=== PATIENT | female | born 1990 | race Caucasian/White ===

== ENCOUNTER 2019-11-25 04:27 | Emergency (ER) | payer MEDICAID, OTHER ==
[~2019-11-25] VITALS: Ht 154.9 cm; Wt 72.0 kg
--- NOTE | 2019-11-25 04:33 | PHYS DOC ---
Past History Past Medical History: Anxiety, Bronchitis, UTI, Other Past Medical History Gravid 11, Para 2 Past Surgical History: No Surgical History Smoking: Cigarettes Alcohol Use: Occasionally Drug Use: Methamphetamine General Adult HPI: HPI: "..I think I may be starting to get ready to have a baby,,, loss my plug approx imately 2 days ago... I was about 36 weeks 4 days on about 3 November... My contractions started about 130 this morning they have been about 5 minutes apart... I am supposed to deliver at but I was worried that I might not be able to make it all the way down there with my baby's daddy driving me... Patient is a 29 year old female who presents with above hx and complaints abdomen contractions reportedly approximately 5 minutes apart. Patient has a gravid 11 para 2. There has been no rupture membranes as yet. No vaginal bleeding. Does appear to be dilated 5 to 8 cm. Effacement to approximately 1 cm. No rupture of membranes as yet. Is having contraction approximately every 5 to 6 min. US show head presentation with FHR 140 to 150's, active move ments. . Sterile glove exam- No active bleeding. Pt. Denies any recent travel out side of area. Pt. denies any ill contacts. Pt. states she discovered she was approximately 2 weeks ago and was seen at . Pt. insistent on transfer to to have delivery or OB evaluation. Pt. denies Covid risks. Review of Systems: Review of Systems: Constitutional: Denies fever or chills Eyes: Denies change in visual acuity HENT: Denies nasal congestion or sore throat Respiratory: Denies cough or shortness of breath Cardiovascular: Denies chest pain or edema GI: Complaintgs of abdominal pain, nausea. Denies vomiting, bloody stools or diarrhea : Denies dysuria Musculoskeletal: Denies back pain or joint pain Integument: Denies rash Neurologic: Denies headache, focal weakness or sensory changes Endocrine: Denies polyuria or polydipsia Lymphatic: Denies swollen glands Psychiatric: Denies depression or anxiety Heart Score: Risk Factors: Risk Factors: DM, Current or recent (<one month) smoker, HTN, HLP, family history of CAD, obesity. Risk Scores: Score 0 - 3: 2.5% MACE over next 6 weeks - Discharge Home Score 4 - 6: 20.3% MACE over next 6 weeks - Admit for Clinical Observation Score 7 - 10: 72.7% MACE over next 6 weeks - Early Invasive Strategies Family History: Family History: Noncontributory Current Medications: Current Meds: See nursing for home meds Allergies: Allergies: Allergies Coded Allergies Type Severity Reaction Last Updated Verified No Known Drug Allergies 02/22/15 No Physical Exam: PE: Constitutional: Well developed, well nourished, no acute distress, non-toxic appearance. [] HENT: Normocephalic, atraumatic, bilateral external ears normal, oropharynx moist, no oral exudates, nose normal. [] Eyes: PERRLA, EOMI, conjunctiva normal, no discharge. [] Neck: Normal range of motion, no tenderness, supple, no stridor. [] Cardiovascular:Heart rate regular rhythm, no murmur [] Lungs & Thorax: Bilateral breath sounds clear to auscultation [] Abdomen: Bowel sounds normal, soft, no tenderness, no masses, no pulsatile masses. [] Skin: Warm, dry, no erythema, no rash. [] Back: No tenderness, no CVA tenderness. [] Extremities: No tenderness, no cyanosis, no clubbing, ROM intact, no edema. [] Neurologic: Alert and oriented X 3, normal motor function, normal sensory function, no focal deficits noted. [] Psychologic: Affect normal, judgement normal, mood normal. [] EKG: EKG: [] Radiology/Procedures: Radiology/Procedures: Bedside ultrasound shows cephalic positioning , active movements and heart rate between 140 and 150s [] Course & Med Decision Making: Course & Med Decision Making Pertinent Labs and Imaging studies reviewed. (See chart for details) Discussed presentation, testing and tx. plan with Dr. Yepez- OB at . Will accept pt. to the Ob unit at . O445 approx.. Pt. insistent on travel to for delivery. Pt. is aware risks to transfer to and possible progression to delivery in route to . Impression: 1. Abdomen Pain- 38 weeks 2. Hx G 11, P2 3. Hx. No Care 4. Leukocytosis 13.2 5. Alk. Phos 182 6. BHG 23,670 7. Blood Type A + 8. Hx. Tobacco and Meth. Use [] Dragon Disclaimer: Miguel Disclaimer: This electronic medical record was generated, in whole or in part, using a voice recognition dictation system. Departure Departure: Disposition: HOME/RESIDENCE PRIOR TO ADM Condition: STABLE Referrals: PCP,SHO (PCP) ADEBAYO CONNOR MD Nov 25, 2019 04:33
[2019-11-25 04:46] VITALS: BP 124/69
[2019-11-25 05:37] LABS: CALCIUM 8.5 mg/dL (8.5-10.1); CREATININE 0.6 mg/dL (0.6-1.0); GFR 118.2; POTASSIUM 3.5 mmol/L (3.5-5.1)
[2019-11-25 05:38] LABS: BASO % 0 % (0-3); EOS # 0.3 x10^3/uL (0.0-0.7); EOS % 2 % (0-3); HEMATOCRIT 37.6 % (36.0-47.0); HEMOGLOBIN 12.2 g/dL (12.0-15.5); LYMPH # 3.7 x10^3/uL (1.0-4.8); LYMPH % 28 % (24-48); MEAN CORPUSCULAR HEMOGLOBIN 30 pg (25-35); MEAN CORPUSCULAR HGB CONC 32 g/dL (31-37); MEAN CORPUSCULAR VOLUME 91 fL (79-100); MONO # 0.8 x10^3/uL (0.0-1.1); MONO % 6 % (0-9); NEUT # 8.4 x10^3uL (1.8-7.7); NEUT % 64 % (31-73); PLATELET COUNT 470 x10^3/uL (140-400); RED BLOOD COUNT 4.13 x10^6/uL (3.50-5.40); RED CELL DISTRIBUTION WIDTH 13.8 % (11.5-14.5); WHITE BLOOD COUNT 13.2 x10^3/uL (4.0-11.0)
[2019-11-25 05:44] LABS: ALBUMIN 2.6 g/dL (3.4-5.0); DIRECT BILIRUBIN 0.1 mg/dL (0.0-0.2); TOTAL BILIRUBIN 0.1 mg/dL (0.2-1.0); TOTAL PROTEIN 6.9 g/dL (6.4-8.2)
[2019-11-25] MEDS ORDERED: IV RINGERS SOLUTION,LACTATED 1,000 ML IV SCH (06:00)
[2019-11-25] MEDS ORDERED: MAGNESIUM SULFATE 2GM 50 ML IV ONE (06:00)
[2019-11-26 16:07] LABS: CHLAMYDIA PROBE Negative (Negative)
== END 2019-11-25 05:28 | disposition short-term general hospital (02) ==
LOC: ER 04:27
DX: O26.893 Other specified pregnancy related conditions, third trimester (principal); O99.113 Other diseases of the blood and blood-forming organs and certain disorders involving the immune mechanism complicating pregnancy, third trimester; D72.829 Elevated white blood cell count, unspecified; R74.8 Abnormal levels of other serum enzymes; O99.333 Smoking (tobacco) complicating pregnancy, third trimester; O99.323 Drug use complicating pregnancy, third trimester; F15.10 Other stimulant abuse, uncomplicated; Z3A.38 38 weeks gestation of pregnancy
CPT/HCPCS: 36415; 80048; 80076; 83690; 84702; 85025; 85610; 85730; 86900; 86901; 87070; 87491; 87591; 99285-25

== ENCOUNTER 2020-10-20 15:20 | Emergency (ER) | payer OTHER ==
[~2020-10-20] VITALS: Ht 154.9 cm; Wt 70.2 kg
--- NOTE | 2020-10-20 15:57 | PHYS DOC ---
Past History Past Medical History: Anxiety, Bronchitis, UTI, Other (ERIC VIRGEN APRN) Past Surgical History: No Surgical History (ERIC VIRGEN APRN) Smoking: Cigarettes Alcohol Use: None Drug Use: Methamphetamine (ERIC VIRGEN APRN) Adult General Chief Complaint Chief Complaint: GI PROBLEM HPI HPI Patient is a 30-year-old female who presents to the emergency department complaining of epigastric burning with nausea and vomiting for the past 3 days. Patient states she is approximately 31 weeks . Reports an EDC of December 182020, patient is a G6, P3 SAB 2, patient is 31 weeks 4 days per EDC on last menstrual cycle of March 14, 2020. Patient reports she does not have any OB care and [place] as she moved from [facility] last week and states she cannot find an WORKERS COMPENSATION CLAIMS ASSISTANT to care for her because she is so far along. Patient reports she plans on coming to [place] emergency department and being transferred to either or [facility] to have her baby. Patient denies chest pain, denies shortness of breath, denies neck pain, sore throat, headaches, diarrhea, abdominal pain, or constipation. Patient reports she is currently nauseated and has thrown up at least 5 times today. Patient states she has had indigestion like this with her previous pregnancies, patient states she needs something to help for today. Patient denies any increased thirst or increased urination. Patient denies any urinary burning or other urinary tract infection signs and symptoms. Patient denies vaginal discharge, denies STI concerns. Patient denies taking any prescription medications at home other than a vitamin, reports ibuprofen as an allergy. Patient denies any recent fever or chills, loss of taste or loss of smell. Patient states she has not had any recent exposure to the COVID-19 virus. Patient states she has not had a COVID-19 virus vaccination. Patient states she smokes cigarettes, denies illicit drug use, states she does drink alcohol but has not had any alcohol consumption during this . (ERIC VIRGEN APRN) Review of Systems Review of Systems 14 body systems of review of systems have been reviewed. See HPI for pertinent positives and negative responses, otherwise all other systems are negative, nonpertinent or noncontributory. (ERIC VIRGEN APRN) Allergies Allergies Allergies Coded Allergies Type Severity Reaction Last Updated Verified ibuprofen Allergy Intermediate Hives 10/20/20 Yes (ERIC VIRGEN APRN) Physical Exam Physical Exam Constitutional: Well developed, well nourished, no acute distress, non-toxic appearance. 30-year-old female in no apparent distress. HENT: Normocephalic, atraumatic, bilateral external ears normal, oropharynx moist, no oral exudates, nose normal. Oropharynx moist, pink, no peritonsillar infection or deep tissue infectious process appreciated. No lymphadenopathy of the head or neck. Bilateral TMs within normal limits. Eyes: PERRLA, EOMI, conjunctiva normal, no discharge. Neck: Normal range of motion, no tenderness, supple, no stridor. No midline spinal tenderness, no nuchal rigidity, no meningismus signs appreciated. Cardiovascular:Heart rate regular rhythm, heart sounds normal to auscultation. Lungs & Thorax: Bilateral breath sounds clear to auscultation all lung dukes. Abdomen: Bowel sounds normal, soft, no tenderness, no masses, no pulsatile masses. Abdomen distended related to , fundal height approximately 10 cm above umbilicus. movement appreciated during palpation of abdomen. Bedside heart tones equals 160 per Doppler. Skin: Warm, dry, no erythema, no rash. Back: No tenderness, no CVA tenderness. No midline spinal tenderness. Extremities: No tenderness, no cyanosis, no clubbing, ROM intact, no edema. Distal cap refill less than 2 seconds, +2/4 pulses, no extremity edema appreciated. Neurologic: Alert and oriented X 3, normal motor function, normal sensory function, no focal deficits noted. Psychologic: Affect normal, judgement normal, mood normal. (ERIC VIRGEN APRN) Current Patient Data Vital Signs Vital Signs Date Time Temp Pulse Resp B/P (MAP) Pulse Ox O2 Delivery O2 Flow Rate FiO2 10/20/20 15:20 98.1 112 18 127/73 (91) 100 Room Air (ERIC VIRGEN APRN) EKG EKG [] (ERIC VIRGEN APRN) Radiology/Procedures Radiology/Procedures [] (ERIC VIRGEN APRN) Heart Score C/O Chest Pain: No Risk Factors: Risk Factors: DM, Current or recent (<one month) smoker, HTN, HLP, family history of CAD, obesity. Risk Scores: Risk Factors: DM, Current or recent (<one month) smoker, HTN, HLP, family history of CAD, obesity. (ERIC VIRGEN APRN) Course & Med Decision Making Course & Med Decision Making Pertinent Labs and Imaging studies reviewed. (See chart for details) 30-year-old female, vital signs reviewed, presents to the emergency department concerning nausea and vomiting for the past 3 days will be 30 weeks . Physical examination was unremarkable, discussed cigarette smoking cessation with patient, ED work-up: Saline lock, 1 L normal saline, urine for urinalysis assay, urine drug screen, CBC, CMP, beta hCG quant, type and Rh. Will give 4 mg IV Zofran, when nausea is resolved will give 20 mill GI cocktail. Patient immediately vomited GI cocktail and given by ED nurse. IV Reglan ordered. Upon reexamination of the patient, patient is able to eat ice chips without any problems, will give second liter of normal saline IV, give a second dose of GI cocktail as the first dose was vomited. Patient will be given first dose of p.o. antibiotic Keflex for her urinary tract infection. Patient's urine was infected, patient's urine drug screen showed positive for cocaine and methamphetamines. Discussed findings with patient, discussed urinalysis findings, patient reports her last use of methamphetamines or cocaine was a week ago. Discussed cessation of illicit drug use, reexamination of the patient, the patient is symptom-free at this time now patient wishes to go home. Patient gave verbal understanding of discharge home instructions, return to ER precautions and concerns, antibiotic prescription use, follow-up with OB soon. Continue taking vitamin. (ERIC VIRGEN APRN) Dragon Disclaimer Dragon Disclaimer This electronic medical record was generated, in whole or in part, using a voice recognition dictation system. (ERIC VIRGEN APRN) Departure Departure: Impression: Primary Impression: Nausea and vomiting during Additional Impressions: Urinary tract infection during Polysubstance abuse Cigarette smoker Disposition: 01 DC HOME SELF CARE/HOMELESS Condition: GOOD Referrals: PCP,NO (PCP) Patient Instructions: Heartburn During Additional Instructions: Please call the [facility] at [phone] for WORKERS COMPENSATION CLAIMS ASSISTANT follow-up. Please take antibiotic as prescribed, follow-up with an WORKERS COMPENSATION CLAIMS ASSISTANT soon, return to the emergency department for worsening symptoms or other concerns, please continue taking your vitamin. I am providing you a WORKERS COMPENSATION CLAIMS ASSISTANT to follow-up with. Please see an WORKERS COMPENSATION CLAIMS ASSISTANT soon. EMERGENCY DEPARTMENT GENERAL DISCHARGE INSTRUCTIONS Thank you for coming to [place] (ED) today and trusting us with you care. We trust that you had a positivie experience in our Emergency Department. If you wish to speak to the department management, you may call the director at [phone]. YOUR FOLLOW UP INSTRUCTIONS ARE FOLLOWS: 1. Do you have a private Doctor? If you do not have a private doctor, please ask for a resource list of physicians or clinics that may be able to assist you with follow up care. 2. The Emergency Physician has interpreted your x-rays. The X-Ray specialist will also review them. If there is a change in the findings, you will be notified in 48 hours when at all possible. 3. A lab test or culture has been done, your results will be reviewed and you will be notified if you need a change in treatment. ADDITIONAL INSTRUCTIONS AND INFORMATION: 1. Your care today has been supervised by a physician who is specially trained in emergency care. Many problems require more than one evaluation for a complete diagnosis and treatment. We recommend that you schedule your follow up appointment as recommended to ensure complete treatment of you illness or injury. If you are unable to obtain follow up care and continue to have a problem, or if your condition worsens, we recommend that you return to the ED. 2. We are not able to safely determine your condition over the phone nor are we able to give sound medical advice over the phone. For these safety reasons, if you call for medical advice we will ask you to come to the ED for further evaluation. 3. If you have any questions regarding these discharge instructions please call the ED at [phone]. SAFETY INFORMATION: In the interest of safety, wellness, and injury prevention; we encourage you to wear your sealbelt, if you smoke; quite smoking, and we encourage family to use a protective helmet for bicycling and other sporting events that present an increased risk for head injury. IF YOUR SYMPTOMS WORSEN OR NEW SYMPTOMS DEVELOP, OR YOU HAVE CONCERNS ABOUT YOUR CONDITION; OR IF YOUR CONDITION WORSENS WHILE YOU ARE WAITING FOR YOUR FOLLOW UP APPOINTMENT; EITHER CONTACT YOUR PRIMARY CARE DOCTOR, THE PHYSICIAN WHOSE NAME AND NUMBER YOU WERE GIVEN, OR RETURN TO THE ED IMMEDIATELY. Scripts Ondansetron (ONDANSETRON ODT) 4 Mg Tab.rapdis 1 TAB PO PRN Q6-8HRS for NAUSEA, #16 TAB 0 Refills Prov: ERIC VIRGEN APRN 10/20/20 Cephalexin (CEPHALEXIN) 500 Mg Tablet 1 TAB PO QID for UTI for 7 Days, #28 TAB 0 Refills Prov: ERIC VIRGEN APRN 10/20/20 Attending Signature Attending Signature I have reviewed the PA/CLINICAL RESEARCH DIRECTOR's note and plan of care. I was available for consultation as needed during the patient's visit in the emergency department. I agree with the clinical impression, plan, and disposition. (ERIC CARDOZA DO) Problem Qualifiers Additional Impressions: Urinary tract infection during Trimester: third trimester Qualified Codes: O23.43 - Unspecified infection of urinary tract in , third trimester ERIC VIRGEN APRN Oct 20, 2020 15:57 ERIC CARDOZA DO Oct 21, 2020 06:32
[2020-10-20] MEDS ORDERED: IV NORMAL SALINE 1,000ML 1,000 ML IV ONE ×2 (16:00→18:45)
[2020-10-20] MEDS ORDERED: LIDO:MAALOX 1:1 20 ML SINGLE DOSE. PO ONE ×2 (16:00→18:30)
[2020-10-20] MEDS ORDERED: ONDANSETRON PF 4 MG/2 ML VIAL. IVP ONE (16:00)
[2020-10-20 16:41] LABS: BASO % 0 % (0-3); EOS # 0.3 x10^3/uL (0.0-0.7); EOS % 3 % (0-3); HEMATOCRIT 32.2 % (36.0-47.0); HEMOGLOBIN 10.6 g/dL (12.0-15.5); LYMPH # 1.4 x10^3/uL (1.0-4.8); LYMPH % 15 % (24-48); MEAN CORPUSCULAR HEMOGLOBIN 30 pg (25-35); MEAN CORPUSCULAR HGB CONC 33 g/dL (31-37); MEAN CORPUSCULAR VOLUME 92 fL (79-100); MONO # 0.6 x10^3/uL (0.0-1.1); MONO % 7 % (0-9); NEUT % 75 % (31-73); PLATELET COUNT 281 x10^3/uL (140-400); RED CELL DISTRIBUTION WIDTH 13.1 % (11.5-14.5); WHITE BLOOD COUNT 9.3 x10^3/uL (4.0-11.0)
[2020-10-20 17:02] LABS: CALCIUM 8.7 mg/dL (8.5-10.1); CREATININE 0.5 mg/dL (0.6-1.0); GFR 144.9; POTASSIUM 3.3 mmol/L (3.5-5.1)
[2020-10-20 17:03] LABS: CLARITY,URINE CLEAR; COLOR,URINE ORANGE
[2020-10-20 17:04] LABS: BARBITURATES NEG (NEG); BENZODIAZEPINES NEG (NEG); CANNABINOIDS NEG (NEG); COCAINE POS (NEG); METHADONE NEG (NEG); OPIATES NEG (NEG); PHENCYCLIDINE NEG (NEG)
[2020-10-20 17:05] LABS: ALBUMIN 2.6 g/dL (3.4-5.0); ALBUMIN/GLOBULIN RATIO 0.6 (1.0-1.7); TOTAL BILIRUBIN 0.7 mg/dL (0.2-1.0); TOTAL PROTEIN 6.8 g/dL (6.4-8.2)
[2020-10-20 17:06] LABS: AMPHETAMINE/METHAMPHETAMINE POS (NEG)
[2020-10-20 17:13] LABS: BACTERIA,URINE FEW /HPF (0-FEW); RBC,URINE OCC /HPF (0-2); WBC,URINE OCC /HPF (0-4)
[2020-10-20 17:14] LABS: SQUAMOUS EPITHELIAL CELL,UR FEW /LPF
[2020-10-20] MEDS ORDERED: METOCLOPRAMIDE HCL 10 MG/2 ML VIAL. IVP ONE (17:45)
[2020-10-20 18:44] VITALS: BP 132/84
[2020-10-20] MEDS ORDERED: CEPHALEXIN 250 MG CAPSULE PO ONE (18:45)
[2020-10-20] MEDS ORDERED: CEPH500T PO (19:23)
[2020-10-20] MEDS ORDERED: ONDA4TAB12 PO (19:23)
== END 2020-10-20 19:30 | disposition home or self-care (01) ==
LOC: ER 15:20
DX: O23.43 Unspecified infection of urinary tract in pregnancy, third trimester (principal); O21.9 Vomiting of pregnancy, unspecified; O99.323 Drug use complicating pregnancy, third trimester; F19.10 Other psychoactive substance abuse, uncomplicated; O99.333 Smoking (tobacco) complicating pregnancy, third trimester; Z3A.31 31 weeks gestation of pregnancy; Z88.6 Allergy status to analgesic agent
CPT/HCPCS: 36415; 80053; 80307; 81001; 84702; 85025; 87491; 87591; 96361; 96374; 96375; 99284; J2405; J2765; J7030; 99285-25